=== PATIENT | female | born 2000 | race American Indian/Alaskan Native ===

== ENCOUNTER 2019-04-11 12:02 | Emergency (ER) | payer SELFPAY ==
--- NOTE | 2019-04-11 13:55 | Event Note ---
{null, ED Screening Note ED Screening Note: pt states she has had spotting for a couple of weeks states she has lower abd cramping states she is not having to use pads or tampons states her last normal menstrual cycle was beginning of mar has not seen an [employer] no pmhx no allergies to meds This initial assessment/diagnostic orders/clinical plan/treatment(s) is/are subject to change based on patients health status, clinical progression and re- assessment by fellow clinical providers in the ED. Further treatment and workup at subsequent clinical providers discretion. Patient/guardian urged not to elope from the ED as their condition may be serious if not clinically assessed and managed. Initial orders include: labs, UA, urine preg }
[2019-04-11 14:32] LABS: Basophils # (Auto) 0.1 K/mm3 (0.0-0.1); Eosinophils # (Auto) 0.1 K/mm3 (0.0-0.4); Eosinophils % (Auto) 0.9 % (0.0-4.3); Hematocrit 38.4 % (30.3-42.9); Hemoglobin 12.5 gm/dl (10.1-14.3); Lymphocytes # (Auto) 2.8 K/mm3 (1.2-5.4); Lymphocytes % (Auto) 30.2 % (13.4-35.0); Mean Corpuscular HGB Conc 33 % (30-34); Mean Corpuscular Volume 83 fl (79-97); Monocytes # (Auto) 0.7 K/mm3 (0.0-0.8); Monocytes % (Auto) 7.2 % (0.0-7.3); Platelet Count 341 K/mm3 (140-440); Red Blood Count 4.65 M/mm3 (3.65-5.03); Red Cell Distribution Width 15.7 % (13.2-15.2)
[2019-04-11 15:33] LABS: Bilirubin,Urine NEG (Negative); Blood,Urine NEG (Negative); Color,Urine Yellow (Yellow); Mucus,Urine FEW /HPF; Protein,Urine <15 mg/dL mg/dL (Negative); Urobilinogen,Urine < 2.0 mg/dL (<2.0)
[2019-04-11 15:45] LABS: HCG Qualitative,Urine Negative (Negative)
--- NOTE | 2019-04-11 16:37 | Emergency Department Report ---
{null, ED Female HPI - General Chief complaint: Urogenital-Female Stated complaint: VAG BLEEDING/CLOTS/CRAMPING Time Seen by Provider: 04/11/19 13:53 Source: patient Mode of arrival: Ambulatory Limitations: No Limitations - History of Present Illness Initial comments: This is a 19-year-old -[place] female that presents to the emergency room with spotting and pelvic cramps for 2 weeks. Patient states her last period was February 26, 2018, G1, . States her period in February was normal and only lasted first 1 week. States she took a home test which was negative. Reports the nausea lasted for the first 2 to 3 days which is now res olved. She is currently not on control. She denies dizziness, back pain, fever, chills, vomiting, vaginal discharge, urinary frequency, urgency, or dysuria. MD Complaint: vaginal bleeding Onset/Timin -: week(s) Location: suprapubic Radiation: non-radiating Severity: mild Severity scale (0 -10): 3 Quality: cramping Consistency: intermittent Improves with: none Worsens with: none Are you Now?: No Last Menstrual Period: 02/26/19 EDC: 12/03/19 Associated Symptoms: denies other symptoms - Related Data Sexually active: Yes : 1 Para: 1 A: 0 Allergies Allergy/AdvReac Type Severity Reaction Status Date / Time No Known Allergies Allergy Unverified 04/11/19 12:16 ED Review of Systems ROS: Stated complaint: VAG BLEEDING/CLOTS/CRAMPING Other details as noted in HPI Constitutional: denies: chills, fever Respiratory: denies: cough, shortness of breath, wheezing Cardiovascular: denies: chest pain, palpitations Gastrointestinal: abdominal pain. denies: nausea, diarrhea Genitourinary: abnormal menses. denies: urgency, dysuria, discharge Musculoskeletal: denies: back pain, joint swelling, arthralgia Skin: denies: rash, lesions Neurological: denies: headache, weakness, paresthesias Psychiatric: denies: anxiety, depression ED Past Medical Hx - Past Medical History Previous Medical History?: No - Surgical History Past Surgical History?: Yes Additional Surgical History: - Social History Smoking Status: Never Smoker Substance Use Type: Marijuana ED Physical Exam - General Limitations: No Limitations General appearance: alert, in no apparent distress, obese - Respiratory Respiratory exam: Present: normal lung sounds bilaterally. Absent: respiratory distress - Cardiovascular Cardiovascular Exam: Present: regular rate, normal rhythm. Absent: systolic murmur, diastolic murmur, rubs, gallop - GI/Abdominal GI/Abdominal exam: Present: soft, normal bowel sounds. Absent: distended, tenderness, guarding, rebound, rigid, organomegaly, pulsatile mass, hernia - Back Exam Back exam: Absent: CVA tenderness (R), CVA tenderness (L) - Neurological Exam Neurological exam: Present: alert, oriented X3, normal gait - Psychiatric Psychiatric exam: Present: normal affect, normal mood - Skin Skin exam: Present: warm, dry, intact, normal color. Absent: rash ED Course Vital Signs 04/11/19 12:15 Temperature 98.0 F Pulse Rate 79 Respiratory 16 Rate Blood Pressure 127/74 O2 Sat by Pulse 96 Oximetry ED Medical Decision Making - Lab Data Result diagrams: 04/11/19 14:03 Lab Results 04/11/19 04/11/19 Range/Units 14:03 14:54 WBC 9.4 (4.5-11.0) K/mm3 RBC 4.65 (3.65-5.03) M/mm3 Hgb 12.5 (10.1-14.3) gm/dl Hct 38.4 (30.3-42.9) % MCV 83 (79-97) fl MCH 27 L (28-32) pg MCHC 33 (30-34) % RDW 15.7 H (13.2-15.2) % Plt Count 341 (140-440) K/mm3 Lymph % (Auto) 30.2 (13.4-35.0) % Cameron % (Auto) 7.2 (0.0-7.3) % Eos % (Auto) 0.9 (0.0-4.3) % Baso % (Auto) 1.0 (0.0-1.8) % Lymph # 2.8 (1.2-5.4) K/mm3 Cameron # 0.7 (0.0-0.8) K/mm3 Eos # 0.1 (0.0-0.4) K/mm3 Baso # 0.1 (0.0-0.1) K/mm3 Seg Neutrophils % 60.7 (40.0-70.0) % Seg Neutrophils # 5.7 (1.8-7.7) K/mm3 Urine Color Yellow (Yellow) Urine Turbidity Clear (Clear) Urine pH 6.0 (5.0-7.0) Ur Specific Una 1.020 (1.003-1.030) Urine Protein <15 mg/dl (Negative) mg/dL Urine Glucose (UA) Neg (Negative) mg/dL Urine Ketones Neg (Negative) mg/dL Urine Blood Neg (Negative) Urine Nitrite Neg (Negative) Urine Bilirubin Neg (Negative) Urine Urobilinogen < 2.0 (<2.0) mg/dL Ur Leukocyte Esterase Tr (Negative) Urine WBC (Auto) 1.0 (0.0-6.0) /HPF Urine RBC (Auto) 2.0 (0.0-6.0) /HPF U Epithel Cells (Auto) 6.0 (0-13.0) /HPF Urine Mucus Few /HPF Urine HCG, Qual Negative (Negative) - Medical Decision Making This is a 19-year-old female who presents with pelvic cramping and vaginal spotting for 2 weeks. Vitals are stable and patient in no acute distress. Abdomen nontender to palpation on exam, negative CVA tenderness. Work-up: CBC, urinalysis, and urine test. All labs are unremarkable. At this time imaging will be deferred. There is low suspicion of anemia, sexually transmitted disease, endometriosis, or uterine fibroids. Reviewed various options for relief of cramping including exercise, diet, and NSAIDs. Referrals given to manager strategic sourcing and primary care for continued care. Start NSAIDs. Given strict return instructions. Patient discharged home stable. - Differential Diagnosis sexually transmitted disease, endometriosis, or uterine fibroids Critical care attestation.: If time is entered above; I have spent that time in minutes in the direct care of this critically ill patient, excluding procedure time. ED Disposition Clinical Impression: Dysmenorrhea, Vaginal spotting, Pelvic pain Disposition: TO HOME OR SELFCARE Is pt being admited?: No Condition: Stable Instructions: Dysmenorrhea (ED) Additional Instructions: Follow-up with a manager strategic sourcing from the list provided below. You may also follow-up with a primary care doctor. Referrals: [facility] [Outside] - 3-5 Days [facility] [Outside] - 3-5 Days [facility] [Provider Group] - 3-5 Days [facility] [Provider Group] - 3-5 Days [facility] [Other] - 3-5 Days Forms: Work/School Release Form(ED) Time of Disposition: 16:38 }
[2019-04-11 17:31] VITALS: BP 122/68
== END 2019-04-11 17:29 | disposition home or self-care (01) ==
LOC: ED 12:02
DX: N94.6 Dysmenorrhea, unspecified (principal); F12.10 Cannabis abuse, uncomplicated; Z98.890 Other specified postprocedural states
CPT/HCPCS: 36415; 81001; 81025; 85025